=== PATIENT | male | born 1975 | race African-American/Black ===

== ENCOUNTER 2016-12-12 14:13 | Emergency (ER) | payer SELFPAY ==
[~2016-12-12] VITALS: Ht 162.6 cm; Wt 81.3 kg
[~2016-12-12 14:13] MED LIST: ALKA-SELTZER P1 EAC9 PO; LOPID600 MG PO; METFORMIN HCL850 MG PO; NOHOMEMEDS; VITAMIN C100 MG PO
[2016-12-12] MEDS ORDERED: KEFLEX500 MG PO (15:59)
[2016-12-12 16:24] VITALS: BP 155/60
== END 2016-12-12 16:25 | disposition home or self-care (01) ==
LOC: EME 14:13
PROC: 3E0234Z Introduction of Serum, Toxoid and Vaccine into Muscle, Percutaneous Approach (ICD-10-PCS; principal; 2016-12-12)
DX: S92.421A Displaced fracture of distal phalanx of right great toe, initial encounter for closed fracture (principal); S92.531A Displaced fracture of distal phalanx of right lesser toe(s), initial encounter for closed fracture; W20.8XXA Other cause of strike by thrown, projected or falling object, initial encounter; R73.9 Hyperglycemia, unspecified
CPT/HCPCS: 73630; 99281; 99283